=== PATIENT | male | born 1935 | race Caucasian/White ===

== ENCOUNTER 2020-11-14 13:46 | Emergency (ER) | payer OTHER ==
[2020-11-14 16:12] LABS: BASOPHIL 0.2 % (0-2); EOSINOPHIL 0.2 % (0-7); HCT 41.3 % (42.0-52.0); HGB 13.8 g/dl (13.2-18.0); LYMPHOCYTE 23.4 % (15-48); MCH 32.9 pg (25.0-31.0); MCHC 33.4 g/dL (32.0-36.0); MCV 98.6 fL (78.0-100.0); MONOCYTE 8.8 % (0-12); MPV 9.8 fL (6.0-9.5); NEUTROPHIL 67.2 % (41-80); NRBC 0; PLT 127 K/uL (150-400); RBC 4.19 M/uL (4.70-6.00); WBC 4.9 K/uL (4.0-10.5)
[2020-11-14 16:26] LABS: BUN/CREAT RATIO (CALC) 19.3 RATIO; CREATININE 1.19 mg/dL (0.67-1.17); POTASSIUM 4.3 mmol/L (3.5-5.1)
[2020-11-14] MEDS ORDERED: NORCO 5-325 TA1 EACH PO (18:48)
[2020-11-14 19:48] LABS: BILIRUBIN NEGATIVE (NEGATIVE); BLOOD NEGATIVE Ery/uL (NEGATIVE); CLARITY CLEAR (CLEAR); COLOR YELLOW (YELLOW); GLUCOSE (U) NORMAL (NORMAL); LEUKOCYTES NEGATIVE Leu/uL (NEGATIVE); NITRITE NEGATIVE (NEGATIVE); PROTEIN NEGATIVE (NEGATIVE); UROBILINOGEN 0.2 mg/dL (0.2-1.0); pH 5.5 (5.0-9.0)
== END 2020-11-14 19:57 | disposition home or self-care (01) ==
LOC: FER 13:46 → EDBD 13:46 → FER 19:57
PROVIDERS: Nurse Practitioner Family
DX: S51.811A Laceration without foreign body of right forearm, initial encounter (principal); S93.401A Sprain of unspecified ligament of right ankle, initial encounter; S80.02XA Contusion of left knee, initial encounter; S80.211A Abrasion, right knee, initial encounter; I10 Essential (primary) hypertension; I48.91 Unspecified atrial fibrillation; Z95.0 Presence of cardiac pacemaker; W19.XXXA Unspecified fall, initial encounter; Z23 Encounter for immunization
CPT/HCPCS: 36415; 70450; 71046; 72125; 73560; 73610; 80048; 81003; 84484; 85025; 90471; 90715; 93005